=== PATIENT | female | born 1985 | race Hispanic/Latino ===

== ENCOUNTER 2020-04-26 22:04 | Inpatient (IN) | payer BC ==
[~2020-04-26] VITALS: Ht 160 cm; Wt 92.5 kg
[~2020-04-26 22:04] MED LIST: [UNRECOGNIZED DRUG - OTHER] PO
[2020-04-26] MEDS ORDERED: LACTATED RINGERS 1000ML 1,000 ML IV PRN (22:10)
[2020-04-26] MEDS ORDERED: ROPIVACAINE 0.2% 100ML VIAL 100 ML EP SCH (22:15)
[2020-04-26] MEDS ORDERED: LACTATED RINGERS 500 ML 500 ML IV PRN (22:15)
[2020-04-26] MEDS ORDERED: MEPERIDINE-PF 50 MG/ML SYG IVP PRN (22:15)
[2020-04-26] MEDS ORDERED: EPHEDRINE SULFATE 50 MG/ML AMPULE IVP PRN (22:15)
[2020-04-26] MEDS ORDERED: PROMETHAZINE HCL 25 MG/ML 1ML AMPULE IM PRN (22:15)
[2020-04-26] MEDS ORDERED: NALOXONE HCL 0.4 MG/1 ML ML IV PRN (22:15)
[2020-04-26 22:44] LABS: APPEARANCE,URINE Clear (CLEAR); BILIRUBIN,URINE Negative (NEGATIVE); COLOR,URINE Yellow (YELLOW); GLUCOSE, URINE (UA) >=1000 mg/dL (NEGATIVE); KETONES,URINE Trace mg/dL (NEGATIVE); LEUKOCYTE ESTERASE ,URINE Negative (NEGATIVE); NITRATE,URINE Negative (NEGATIVE); OCCULT BLOOD,URINE Moderate (NEGATIVE); PH,URINE 6.5 (5.0-8.0); PROTEIN,URINE Negative (NEGATIVE)
[2020-04-26 23:00] LABS: HEMATOCRIT 33.7 % (36-48); MEAN CORPUSCULAR HEMOGLOBIN 27.2 pg (27.0-33.0); MEAN CORPUSCULAR VOLUME 84.9 fL (79-99); RED BLOOD CELL COUNT(AUTO) 3.97 MIL/uL (4.00-5.50); RED CELL DISTRIBUTION WIDTH 14.3 % (11.0-15.5); WHITE BLOOD COUNT (AUTO) 10.2 K/uL (4.8-10.8)
[2020-04-26 23:05] LABS: BACTERIA,URINE None Seen /HPF (None Seen); RBC,URINE None Seen /HPF (0-1); SQUAMOUS EPITHELIAL CELL,UR Moderate /HPF (0-2); WBC,URINE 0-1 /HPF (0-1); YEAST,URINE BUDDING None Seen /HPF (None Seen)
[2020-04-27] MEDS ORDERED: OXYTOCIN 10 USP UNITS/ML 20 UNIT in LACTATED RINGERS 1000ML 1,000 ML IV SCH (05:00)
[2020-04-27 09:26] LABS: RAPID PLASMA REAGIN NONREACTIVE (NONREACTIVE)
[2020-04-27] MEDS ORDERED: OXYTOCIN-LR 20 UNITS/1000 ML 1,000 ML IV ONE ×2 (09:50→13:44)
[2020-04-27] MEDS ORDERED: IBUPROFEN 600 MG TABLET ONE (13:44)
[2020-04-27] MEDS ORDERED: WITCH HAZEL 1 PAD TP PRN (14:00)
[2020-04-27] MEDS ORDERED: BENZOCAINE/LANOLIN/ALOE VERA 60 ML AEROSOL TP PRN (14:00)
[2020-04-27] MEDS ORDERED: MEASLES/MUMPS/RUBELLA VACCINE, LIVE 0.5 ML/VIAL SQ PRN (14:00)
[2020-04-27] MEDS ORDERED: ACETAMINOPHEN-CODEINE 300/30MG TAB PO PRN (14:00)
[2020-04-27] MEDS ORDERED: ACETAMINOPHEN 325 MG TAB PO PRN (14:00)
[2020-04-27] MEDS ORDERED: DIPH,PERTUSS(ACELL),TET VAC/PF 0.5 ML VIAL IM PRN (14:00)
[2020-04-27] MEDS ORDERED: LANOLIN 30GM OINTMENT TP PRN (14:00)
[2020-04-27 14:20] VITALS: BP 140/57
--- NOTE | 2020-04-27 14:25 | NUR ---
PATIENT ARRIVED TO UNIT VIA WHEELCHAIR. PATIENT ORIENTED TO ROOM. NO CONCERNS ADDRESSED FROM PATIENT. ADVISED PATIENT TO CALL WITH ANY NEEDS OR CONCERNS.
--- NOTE | 2020-04-27 15:47 | NUR ---
TDAP GIVEN IM TO LEFT DELTOID. NO BLOOD ON ASPIRATION. PATIENT TOLERATED INJECTION WELL. EDUCATED PATIENT ON SITZ BATH INSTRUCTIONS, INSTRUCTIONS AND DESIRED EFFECTS OF LANOLIN, DERMAPLAST SPRAY, AND TUCKS PADS.
[2020-04-27 19:24] VITALS: BP 134/73
[2020-04-27] MEDS: IBUPROFEN 600 MG TABLET PO PRN (20:50)
[2020-04-27] MEDS: DOCUSATE SODIUM 100 MG CAP PO SCH (20:50)
[2020-04-27 23:22] VITALS: BP 118/66
[2020-04-28] MEDS ORDERED: PREN-18 PO (03:08)
[2020-04-28 03:19] VITALS: BP 113/58
[2020-04-28 07:18] LABS: HEPATITIS Bs ANTIGEN SCREEN P Negative (Negative)
[2020-04-28 07:37] LABS: HEMATOCRIT 28.4 % (36-48); MEAN CORPUSCULAR HEMOGLOBIN 27.2 pg (27.0-33.0); MEAN CORPUSCULAR HGB CONC 31.3 g/dL (32.0-36.0); MEAN CORPUSCULAR VOLUME 86.9 fL (79-99); RED BLOOD CELL COUNT(AUTO) 3.27 MIL/uL (4.00-5.50); RED CELL DISTRIBUTION WIDTH 14.3 % (11.0-15.5); WHITE BLOOD COUNT (AUTO) 11.4 K/uL (4.8-10.8)
[2020-04-28 08:12] VITALS: BP 114/66
[2020-04-28] MEDS: IBUPROFEN 600 MG TABLET PO PRN (09:20)
[2020-04-28] MEDS: DOCUSATE SODIUM 100 MG CAP PO SCH (09:20)
[2020-04-28 12:16] VITALS: BP 132/84
[2020-04-28 16:14] VITALS: BP 142/88
--- NOTE | 2020-04-28 18:30 | NUR ---
pt is discharged. verbal and written discharge instructions given, refer to discharge summary. informed of the follow up appointment, prescription given. informed to call the doctor for future concerns. pt voiced understanding to all things discussed. Addendum: 04/28/20 at 1836 by KYLAH GUILLORY RN Amended: Links added.
--- NOTE | 2020-04-28 18:40 | NUR ---
pt is dismissed in stable condition, brought to private car via wheelchair Addendum: 04/28/20 at 1845 by KYLAH GUILLORY RN Amended: Links added.
== END 2020-04-28 18:40 | disposition home or self-care (01) | DRG 807 ==
LOC: LDH 22:04 → WSH 04-27 14:15
PROVIDERS: ADMIT Obstetrics & Gynecology; ATTEND Obstetrics & Gynecology
PROC: 10E0XZZ Delivery of Products of Conception, External Approach (ICD-10-PCS; principal; 2020-04-27)
PROC: 0W8NXZZ Division of Female Perineum, External Approach (ICD-10-PCS; 2020-04-27)
PROC: 10907ZC Drainage of Amniotic Fluid, Therapeutic from Products of Conception, Via Natural or Artificial Opening (ICD-10-PCS; 2020-04-27)
PROC: 0W8NXZZ Division of Female Perineum, External Approach (ICD-10-PCS; 2020-04-27)
PROC: 3E0234Z Introduction of Serum, Toxoid and Vaccine into Muscle, Percutaneous Approach (ICD-10-PCS; 2020-04-27)
DX: O69.81X0 Labor and delivery complicated by cord around neck, without compression, not applicable or unspecified (principal); Z37.0 Single live birth; Z3A.39 39 weeks gestation of pregnancy; Z23 Encounter for immunization
CPT/HCPCS: 36415; 81001; 85027; 86592; 86701; 86850; 86900; 86901; 87340; 87390; 90715; A4351; A4606; G0378; J2175; J2550; J2590; J7120

== ENCOUNTER 2022-12-16 09:04 | Observation (INO) | payer BC ==
[~2022-12-16] VITALS: Ht 172.7 cm; Wt 92.5 kg
[~2022-12-16 09:04] MED LIST changes: +PREN-18 PO
[2022-12-18] MEDS ORDERED: FAMO-136 PO (20:06)
[2022-12-18] MEDS ORDERED: PREN-196 PO (20:06)
[2022-12-20] MEDS ORDERED: IBUP-2088 PO (12:26)
== END 2022-12-16 11:37 | disposition home or self-care (01) ==
LOC: LDH 09:04
PROVIDERS: ADMIT Obstetrics & Gynecology; ATTEND Obstetrics & Gynecology
DX: Z34.83 Encounter for supervision of other normal pregnancy, third trimester (principal); Z3A.39 39 weeks gestation of pregnancy
CPT/HCPCS: 59025; 76819; 76805; G0378 ×2; G0379